=== PATIENT | female | born 1995 | race Caucasian/White ===

== ENCOUNTER 2017-01-23 20:39 | Emergency (ER) | payer OTHER ==
[2017-01-23] MEDS ORDERED: LIDOCAINE 1%/EPINEPHRINE INJ 20 ML VIAL INJ ONE (21:14)
[2017-01-23] MEDS ORDERED: LIDOCAINE 1% INJ-PF (10 MG/ML) 30 ML SDV ONE (21:18)
--- NOTE | 2017-01-23 21:57 | ER Document Report ---
ED General - General Chief Complaint: Hand Injury Stated Complaint: HAND LACERATION Time Seen by Provider: 01/23/17 21:07 Notes: Patient is a 21-year-old female who presents after sustaining a laceration to the palmar surface of her left hand on a piece of glass. Since that time states that she has had a severe, constant, aching pain to the affected area. She also notes that she is unable to flex her index finger. No history of similar injury in the past. Nothing improves or worsens her pain of an attempt at moving her finger which do worsen her pain. She is right-hand dominant. She has not seen her primary care doctor regarding today's concerns. TRAVEL OUTSIDE OF THE [place] IN LAST 30 DAYS: No - Related Data Allergies/Adverse Reactions: Penicillins Allergy (Verified 01/23/17 21:29) Past Medical History - General Information source: Patient - Social History Smoking Status: Never Smoker Chew tobacco use (# tins/day): No Frequency of alcohol use: None Drug Abuse: None Lives with: Spouse/Significant other Family History: Reviewed & Not Pertinent Patient has suicidal ideation: No Patient has homicidal ideation: No Renal/ Medical History: Denies: Hx Peritoneal Dialysis Surgical Hx: Negative - Immunizations Hx Diphtheria, Pertussis, Tetanus Vaccination: No - needs Review of Systems - Review of Systems Notes: Constitutional: Negative for fever. Eyes: Negative for visual changes. ENT: Negative for facial injury Cardiovascular: Negative for chest injury. Respiratory: Negative for shortness of breath. Gastrointestinal: Negative for abdominal injury. Genitourinary: Negative for genital injury Musculoskeletal: Negative for back injury. Skin: Positive for laceration/abrasions. Neurological: Negative for head injury. Physical Exam - Vital signs Vitals: Temp Pulse Resp BP Pulse Ox 99.1 F 119 H 17 144/102 H 99 01/23/17 20:52 01/23/17 20:52 01/23/17 20:52 01/23/17 20:52 01/23/17 20:52 Interpretation: Tachycardic Notes: PHYSICAL EXAMINATION: GENERAL: Well-appearing, well-nourished and in no acute distress. HEAD: Atraumatic, normocephalic. EYES: sclera anicteric, conjunctiva are normal. ENT: Moist mucous membranes. NECK: Normal range of motion LUNGS: Normal work of breathing HEART: 2+ radial pulses bilaterally EXTREMITIES: Patient is unable to flex the index finger at the MCP, PIP or DIP. She has full extension of all digits. Full flexion of the remaining fingers. NEUROLOGICAL: No focal neurological deficits. Moves all extremities spontaneously and on command. PSYCH: Anxious, tearful SKIN: Warm, Dry, normal turgor, there is a 4 cm laceration of the left palmar surface Course - Re-evaluation Re-evalutation: 01/23/17 21:56 Patient presents with a left palmar laceration with associated flexor tendon injury involving the pointer finger. Patient is unable to flex the pointer finger at the MCP, PIP or DIP. She has full extension of all digits. Full flexion of the remaining fingers. Laceration was repaired with a total of 4 4- 0 nylon stitches. X-ray does not demonstrate any retained foreign body. I have informed the patient that she will require close outpatient follow-up with hand surgery for repair of a probable tendon injury. At this time will discharge with return precautions and follow-up recommendations. Verbal discharge instructions given a the bedside and opportunity for questions given. Medication warnings reviewed. Patient is in agreement with this plan and has verbalized understanding of return precautions and the need for orthopedic follow-up in the next 24-72 hours. - Vital Signs Vital signs: Temp Pulse Resp BP Pulse Ox 98.5 F 105 H 16 129/85 H 100 01/23/17 22:51 01/23/17 22:51 01/23/17 22:51 01/23/17 22:51 01/23/17 22:51 - Diagnostic Test Radiology reviewed: Image reviewed, Reports reviewed Radiology results interpreted by me: 01/24/17 03:36 Hand x-ray: No evidence of retained foreign body Procedures - Laceration/Wound Repair Left Hand Wound length (cm): 4 Wound's Depth, Shape: Superficial Laceration pre-procedure: Sterile PPE donned Anesthetic type: 1% Lidocaine w/epi Volume Anesthetic (mLs): 2 Wound explored: Clean Irrigated w/ Saline (mLs): 500 Wound Debrided: Moderate Wound Repaired With: Sutures Suture Size/Type: 4:0, Nylon Number of Sutures: 4 Layer Closure?: No Post-procedure wound care: Sterile dressing applied Post-procedure NV exam normal: Yes Complications: No Discharge - Discharge Clinical Impression: Laceration of left hand Qualifiers: Encounter type: initial encounter Foreign body presence: without foreign body Qualified Code(s): S61.412A - Laceration without foreign body of left hand, initial encounter Injury of flexor tendon of left hand Qualifiers: Encounter type: initial encounter Qualified Code(s): S66.802A - Unspecified injury of other specified muscles, fascia and tendons at wrist and hand level, left hand, initial encounter Condition: Good Disposition: HOME, SELF-CARE Additional Instructions: You need to follow-up with orthopedic hand surgery early next week for definitive management of your tendon injury as this will likely require surgical repair. Return immediately if you develop spreading redness around the wound, pus from the wound, worsening pain, or a fever of >100.4. Keep the area clean and dry. Wash gently with soap and water twice daily and cover with antibiotic ointment. Referrals: LAUREEN SANTIZO DO [ACTIVE STAFF] - Follow up in 3-5 days
--- NOTE | 2017-01-23 22:20 | RADIOLOGY REPORT (SQ) ---
EXAM DESCRIPTION: HAND LEFT 3 VIEWS COMPLETED DATE/TIME: 01/23/2017 10:11 pm REASON FOR STUDY: eval injury, retained foreign body COMPARISON: None. EXAM PARAMETERS: NUMBER OF VIEWS: Three views. TECHNIQUE: AP, lateral and oblique radiographic images acquired of the left hand. LIMITATIONS: None. FINDINGS: MINERALIZATION: Normal. BONES: No acute fracture or dislocation. No worrisome bone lesions. JOINTS: No effusions. SOFT TISSUES: Soft tissue injury between the 1st and 2nd digits. No radiopaque foreign body. OTHER: No other significant finding. IMPRESSION: SOFT TISSUE INJURY WITHOUT FRACTURE OR RADIOPAQUE FOREIGN BODY IDENTIFIED TECHNICAL DOCUMENTATION: JOB ID: [id number] [employer]- All Rights Reserved
[2017-01-23] MEDS ORDERED: DIPH/PERTUSS(ACELL)/TETANUS VAC/PF 0.5 ML SYR (>=10YO) IM ONE (22:37)
[2017-01-23 22:56] VITALS: BP 129/85
== END 2017-01-23 22:56 | disposition home or self-care (01) ==
LOC: ER 20:39
PROC: 0HQGXZZ Repair Left Hand Skin, External Approach (ICD-10-PCS; principal; 2017-01-23)
DX: S66.802A Unspecified injury of other specified muscles, fascia and tendons at wrist and hand level, left hand, initial encounter (principal); S61.412A Laceration without foreign body of left hand, initial encounter; W45.8XXA Other foreign body or object entering through skin, initial encounter
CPT/HCPCS: 99283; 90471; 73130; 90715; 12002; J3490